=== PATIENT | male | born 1960 | race Asian ===

== ENCOUNTER 2016-08-13 16:00 | Outpatient (RCR) | payer BC ==
[2005-03-14 12:17] VITALS: TEMP 98
== END 2016-08-21 16:52 | disposition home or self-care (01) ==
LOC: WSPT 16:00
DX: M75.81 Other shoulder lesions, right shoulder (principal)

== ENCOUNTER → 2016-08-24 | Outpatient (CLI) | payer BC ==
[2005-03-14 12:17] VITALS: TEMP 98
== END ==
LOC: COL.RAD 13:10
DX: S43.431A Superior glenoid labrum lesion of right shoulder, initial encounter (principal); S43.491A Other sprain of right shoulder joint, initial encounter
CPT/HCPCS: A9585; Q9967

== ENCOUNTER 2019-12-11 09:55 | Day surgery (SDC) | payer BC ==
[~2019-12-11] VITALS: Ht 170.2 cm; Wt 71.0 kg
[2019-12-11] MEDS ORDERED: D3-5050000 IU PO (10:39)
[2019-12-11] MEDS ORDERED: ZOCOR 40MG40 MG PO (10:39)
[2019-12-11 10:40] VITALS: BP 115/86; PULSE 88; TEMP 97
[2019-12-11 11:25] VITALS: BP 107/83; PULSE 62; TEMP 98.3
--- NOTE | 2019-12-11 11:25 | NUR ---
Patient brought back to [facility] via cart. Ambulated to chair with one assist. Beth RN at bedside for report. Placed on monitors, vital signs stable. Patient denies pain or nausea. to pick patient up later. Requests soda and muffin. Warm blanket provided, call gordon within reach. Will continue to monitor.
[2019-12-11 11:40] VITALS: BP 110/82; PULSE 88
--- NOTE | 2019-12-11 11:40 | NUR ---
Patient is tolerating food and drink without difficulty. Requesting second drink and muffin. called and updated. Vital signs stable. Will continue to monitor.
[2019-12-11 11:55] VITALS: BP 113/91; PULSE 89
--- NOTE | 2019-12-11 11:55 | NUR ---
Patient states he feel ready to go home. IV removed intact. Dr. Castillo at bedside to explain results. Patient to get dressed at this time.
--- NOTE | 2019-12-11 12:15 | NUR ---
Discharge instructions reviewed with patient, verbalized understanding. Brought down to lobby via wheel chair. up front. Assisted into vehicle. to care for patient at this time. All belongings in hand.
== END 2019-12-11 12:15 | disposition home or self-care (01) ==
LOC: SDCO
DX: Z12.11 Encounter for screening for malignant neoplasm of colon (principal); D12.2 Benign neoplasm of ascending colon; Z86.010 Personal history of colon polyps; E78.00 Pure hypercholesterolemia, unspecified
CPT/HCPCS: J2250; J3010; J7030